=== PATIENT | female | born 1955 | race Hispanic/Latino ===

== ENCOUNTER 2023-08-31 14:39 | Inpatient (IN) | payer OTHER ==
[2023-08-31] VITALS (27 sets, daily range): BP systolic 100–161; BP diastolic 60–106; PULSE 83–96; RESP 20–33; O2SAT 92–98
[~2023-08-31] VITALS: Ht 162.6 cm; Wt 53.2 kg
[~2023-08-31 14:39] MED LIST: ALBU18HF7 IH; FLUT1BLS IH; GABA100C PO; IPRA3AMP24 IH; PANT40TA PO; TIOT4MIS5 IH
[2023-08-31 15:15] LABS: BASOPHILS # (AUTO) 0.02 K/uL (0.00-0.20); BASOPHILS % (AUTO) 0.2 % (0.0-5.0); EOSINOPHILS # (AUTO) 0.03 K/uL (0.00-0.70); EOSINOPHILS % (AUTO) 0.3 % (0.0-8.0); HEMATOCRIT 39.4 % (36-48); IMMATURE GRANULOCYTE ABSOLUTE 0.04 K/uL (0-1); LYMPHOCYTES # (AUTO) 0.9 K/uL (1.0-4.8); LYMPHOCYTES % (AUTO) 8.6 % (21.0-51.0); MEAN CORPUSCULAR HEMOGLOBIN 29.1 pg (27.0-33.0); MEAN CORPUSCULAR HGB CONC 31.7 g/dL (32.0-36.0); MEAN CORPUSCULAR VOLUME 91.6 fL (79-99); MONOCYTES # (AUTO) 0.4 K/uL (0.1-1.0); MONOCYTES % (AUTO) 3.3 % (3.0-13.0); NEUTROPHILS # (AUTO) 9.3 K/uL (1.8-7.7); NEUTROPHILS % (AUTO) 87.2 % (40.0-77.0); PLATELET COUNT (AUTO) 322 K/uL (130-400); RED CELL DISTRIBUTION WIDTH 11.7 % (11.0-15.5); WHITE BLOOD COUNT (AUTO) 10.6 K/uL (4.8-10.8)
[2023-08-31 15:31] LABS: B-TYPE NATRIURETIC PEPTIDE 65 pg/mL (0-100)
[2023-08-31 15:32] LABS: ALBUMIN 3.6 g/dL (3.5-5.0); BILIRUBIN,TOTAL 0.3 mg/dL (0.2-1.0); CREATININE 0.7 mg/dL (0.5-1.0); MAGNESIUM 1.7 mg/dL (1.80-2.40); POTASSIUM 4.6 mmol/L (3.5-5.1); TOTAL PROTEIN, SERUM 7.1 g/dL (6.0-8.3)
[2023-08-31] MEDS: IPRATROPIUM/ALBUTEROL SULFATE 3 ML SOLUTION IH ONE (15:42)
[2023-08-31 15:55] LABS: ABG BASE EXCESS 2.7 mmol/L (-2.0-3.0); ABG HCO3 33.2 mmol/L (21.0-28.0); ABG OXYGEN SATURATION 91.4 % (95.0-99.0); ABG PCO2 82 mmHg (32-45); ABG PH 7.227 (7.35-7.450); PO2, ARTERIAL BG 74.2 mmHg (83.0-108.0); VENT MODE, BG NC (ROOM AIR)
[2023-08-31] MEDS: LEVOFLOXACIN 750 MG/D5W 150ML BAG IV ONE (16:59)
[2023-08-31 17:38] LABS: HEMOGLOBIN A1C 6.1 % (4.0-6.0)
[2023-08-31 17:48] LABS: THYROID STIMULATING HORMONE 1.08 uIU/mL (0.36-3.74)
[2023-08-31] MEDS ORDERED: ACETAMINOPHEN 500 MG TABLET PO PRN (18:00)
[2023-08-31] MEDS ORDERED: POTASSIUM CHLORIDE 20MEQ/100ML 100 ML IV PRN (18:00)
[2023-08-31] MEDS: SOLU-MEDROL 40MG VIAL IVP SCH (18:24)
[2023-08-31] MEDS: MAGNESIUM 2GM PREMIX 50ML 50 ML IV PRN (18:37)
[2023-08-31 18:51] LABS: SARS-CoV-2, RNA, NAAT NEGATIVE SARS CoV-2 (NEGATIVE)
[2023-08-31 19:01] LABS: INFLUENZA TYPE A Negative For Type A (NEGATIVE); INFLUENZA TYPE B Negative For Type B (NEGATIVE)
[2023-08-31] MEDS: IPRATROPIUM/ALBUTEROL SULFATE 3 ML SOLUTION IH SCH (19:26)
[2023-08-31 20:06] LABS: ABG BASE EXCESS 5.5 mmol/L (-2.0-3.0); ABG HCO3 36.4 mmol/L (21.0-28.0); ABG OXYGEN SATURATION 81.6 % (95.0-99.0); ABG PCO2 87 mmHg (32-45); ABG PH 7.242 (7.35-7.450); PO2, ARTERIAL BG 55.1 mmHg (83.0-108.0); VENT MODE, BG BIPAP 14-6 (ROOM AIR)
[2023-08-31] MEDS: BUDESONIDE 0.25 MG/2 ML INH IH SCH (21:30)
[2023-08-31] MEDS ORDERED: IBUP-2077 PO (21:34)
[2023-08-31] MEDS ORDERED: BENZ-226 PO (21:36)
[2023-08-31] MEDS ORDERED: CEFU500T67 PO (21:37)
[2023-08-31] MEDS: FAMOTIDINE 20MG VIAL IV SCH (21:47)
[2023-08-31] MEDS: LORAZEPAM 2 MG/ML 1 ML VIAL ONE (22:08)
[2023-08-31] MEDS: SODIUM CHLORIDE 1,000 MG TAB ONE (22:08)
[2023-08-31] MEDS: LORAZEPAM 2 MG/ML 1 ML VIAL IVP ONE (22:11)
[2023-08-31] MEDS: SODIUM CHLORIDE 1,000 MG TAB PO SCH (22:15)
[2023-09-01] VITALS (75 sets, daily range): BP systolic 99–160; BP diastolic 47–108; PULSE 65–99; RESP 14–74; O2SAT 92–96
[2023-09-01 00:35] LABS: ABG BASE EXCESS 6.6 mmol/L (-2.0-3.0); ABG HCO3 37.8 mmol/L (21.0-28.0); ABG OXYGEN SATURATION 94.1 % (95.0-99.0); ABG PCO2 94 mmHg (32-45); ABG PH 7.224 (7.35-7.450); CARBON MONOXIDE 1.8; HHb 5.8; PO2, ARTERIAL BG 73.6 mmHg (83.0-108.0)
[2023-09-01] MEDS: 0.9%NACL 1000ML 1,000 ML IV SCH (01:27)
[2023-09-01 02:58] LABS: ABG BASE EXCESS 7.6 mmol/L (-2.0-3.0); ABG HCO3 38.8 mmol/L (21.0-28.0); ABG OXYGEN SATURATION 91.9 % (95.0-99.0); ABG PCO2 97 mmHg (32-45); ABG PH 7.222 (7.35-7.450); CARBON MONOXIDE 1.5; HHb 7.9; PO2, ARTERIAL BG 67.5 mmHg (83.0-108.0)
[2023-09-01 05:34] LABS: ABG BASE EXCESS 5.1 mmol/L (-2.0-3.0); ABG OXYGEN SATURATION 93.1 % (95.0-99.0); ABG PCO2 72 mmHg (32-45); ABG PH 7.289 (7.35-7.450); CARBON MONOXIDE 1.7; HHb 6.8; PO2, ARTERIAL BG 71.5 mmHg (83.0-108.0); VENT MODE, BG BIPAP 20-9 (ROOM AIR)
[2023-09-01 07:18] LABS: HEMATOCRIT 39.8 % (36-48); IMMATURE GRANULOCYTE ABSOLUTE 0.02 K/uL (0-1); LYMPHOCYTES # (AUTO) 0.4 K/uL (1.0-4.8); LYMPHOCYTES % (AUTO) 8.2 % (21.0-51.0); MEAN CORPUSCULAR HEMOGLOBIN 29.5 pg (27.0-33.0); MEAN CORPUSCULAR HGB CONC 31.2 g/dL (32.0-36.0); MEAN CORPUSCULAR VOLUME 94.5 fL (79-99); MONOCYTES % (AUTO) 0.4 % (3.0-13.0); NEUTROPHILS # (AUTO) 4.7 K/uL (1.8-7.7); PLATELET COUNT (AUTO) 339 K/uL (130-400); RED BLOOD CELL COUNT(AUTO) 4.21 MIL/uL (4.00-5.50); RED CELL DISTRIBUTION WIDTH 11.6 % (11.0-15.5); WHITE BLOOD COUNT (AUTO) 5.1 K/uL (4.8-10.8)
[2023-09-01 07:25] LABS: CREATININE 0.7 mg/dL (0.5-1.0); POTASSIUM 5.8 mmol/L (3.5-5.1)
[2023-09-01] MEDS ORDERED: PHARMACY COMMUNICATION MISC SCH (10:30)
[2023-09-01] MEDS ORDERED: DEXMEDETOMIDINE HCL 400 MCG in 0.9%NACL 100ML 100 ML IV SCH (11:30)
[2023-09-01 15:13] LABS: ABG BASE EXCESS 6.4 mmol/L (-2.0-3.0); ABG HCO3 36.9 mmol/L (21.0-28.0); ABG OXYGEN SATURATION 96.9 % (95.0-99.0); ABG PCO2 83 mmHg (32-45); ABG PH 7.264 (7.35-7.450); DEVICE COMMENT SYLVIA RN; PO2, ARTERIAL BG 107.5 mmHg (83.0-108.0)
[2023-09-01] MEDS: DEXMEDETOMIDINE 400MCG/NS100ML IV SCH (16:40)
[2023-09-01] MEDS: LEVOFLOXACIN 500 MG/D5W 100 ML 100 ML IV SCH (16:40)
[2023-09-01] MEDS: ENOXAPARIN SODIUM 30 MG/0.3 ML SQ SCH (22:44)
[2023-09-02] VITALS (42 sets, daily range): BP systolic 97–135; BP diastolic 46–78; PULSE 48–92; RESP 16–29; O2SAT 91–97
[2023-09-02 04:13] LABS: HEMATOCRIT 35.6 % (36-48); IMMATURE GRANULOCYTE ABSOLUTE 0.03 K/uL (0-1); LYMPHOCYTES # (AUTO) 0.6 K/uL (1.0-4.8); MEAN CORPUSCULAR HEMOGLOBIN 29.3 pg (27.0-33.0); MEAN CORPUSCULAR HGB CONC 31.7 g/dL (32.0-36.0); MEAN CORPUSCULAR VOLUME 92.2 fL (79-99); MONOCYTES # (AUTO) 0.4 K/uL (0.1-1.0); NEUTROPHILS # (AUTO) 5.9 K/uL (1.8-7.7); NEUTROPHILS % (AUTO) 84.6 % (40.0-77.0); PLATELET COUNT (AUTO) 328 K/uL (130-400); RED BLOOD CELL COUNT(AUTO) 3.86 MIL/uL (4.00-5.50); RED CELL DISTRIBUTION WIDTH 11.8 % (11.0-15.5)
[2023-09-02 04:34] LABS: CREATININE 0.7 mg/dL (0.5-1.0); POTASSIUM 5.7 mmol/L (3.5-5.1)
[2023-09-02 07:33] LABS: ABG BASE EXCESS 6.7 mmol/L (-2.0-3.0); ABG HCO3 34.3 mmol/L (21.0-28.0); ABG OXYGEN SATURATION 91.6 % (95.0-99.0); ABG PCO2 62 mmHg (32-45); ABG PH 7.362 (7.35-7.450); PO2, ARTERIAL BG 65.3 mmHg (83.0-108.0); VENT MODE, BG BIPAP 20-9 (ROOM AIR)
[2023-09-02] MEDS: NA ZIRCON CYCLOSIL(LOKELMA 10GM) PO STA (09:13)
[2023-09-02] MEDS: SOLU-MEDROL 40MG VIAL IVP SCH (18:04)
[2023-09-03] VITALS (13 sets, daily range): BP systolic 112–149; BP diastolic 56–73; PULSE 70–95; RESP 18–26; O2SAT 95–98
[2023-09-03 05:09] LABS: BASOPHILS # (AUTO) 0.01 K/uL (0.00-0.20); BASOPHILS % (AUTO) 0.1 % (0.0-5.0); HEMATOCRIT 34.9 % (36-48); IMMATURE GRANULOCYTE ABSOLUTE 0.03 K/uL (0-1); LYMPHOCYTES # (AUTO) 0.4 K/uL (1.0-4.8); LYMPHOCYTES % (AUTO) 4.9 % (21.0-51.0); MEAN CORPUSCULAR HEMOGLOBIN 29.4 pg (27.0-33.0); MEAN CORPUSCULAR HGB CONC 31.8 g/dL (32.0-36.0); MEAN CORPUSCULAR VOLUME 92.3 fL (79-99); MONOCYTES # (AUTO) 0.2 K/uL (0.1-1.0); MONOCYTES % (AUTO) 2.5 % (3.0-13.0); NEUTROPHILS # (AUTO) 8.2 K/uL (1.8-7.7); NEUTROPHILS % (AUTO) 92.2 % (40.0-77.0); PLATELET COUNT (AUTO) 353 K/uL (130-400); RED BLOOD CELL COUNT(AUTO) 3.78 MIL/uL (4.00-5.50); RED CELL DISTRIBUTION WIDTH 12.1 % (11.0-15.5); WHITE BLOOD COUNT (AUTO) 8.8 K/uL (4.8-10.8)
[2023-09-03 05:17] LABS: CREATININE 0.7 mg/dL (0.5-1.0); POTASSIUM 4.5 mmol/L (3.5-5.1)
[2023-09-03] MEDS: SOLU-MEDROL 40MG VIAL IVP SCH (20:09)
[2023-09-04] VITALS (13 sets, daily range): BP systolic 104–142; BP diastolic 60–76; PULSE 69–90; RESP 18–27; O2SAT 93–99
[2023-09-04] MEDS: ALPRAZOLAM 0.25 MG TABLET PO STA (01:45)
[2023-09-04 04:57] LABS: HEMATOCRIT 36.2 % (36-48); IMMATURE GRANULOCYTE ABSOLUTE 0.04 K/uL (0-1); LYMPHOCYTES # (AUTO) 0.6 K/uL (1.0-4.8); MEAN CORPUSCULAR HEMOGLOBIN 29.8 pg (27.0-33.0); MEAN CORPUSCULAR HGB CONC 31.8 g/dL (32.0-36.0); MEAN CORPUSCULAR VOLUME 93.8 fL (79-99); MONOCYTES # (AUTO) 0.7 K/uL (0.1-1.0); MONOCYTES % (AUTO) 7.9 % (3.0-13.0); NEUTROPHILS # (AUTO) 7.5 K/uL (1.8-7.7); NEUTROPHILS % (AUTO) 84.6 % (40.0-77.0); PLATELET COUNT (AUTO) 348 K/uL (130-400); RED BLOOD CELL COUNT(AUTO) 3.86 MIL/uL (4.00-5.50); RED CELL DISTRIBUTION WIDTH 12.3 % (11.0-15.5); WHITE BLOOD COUNT (AUTO) 8.9 K/uL (4.8-10.8)
[2023-09-04 05:16] LABS: CREATININE 0.7 mg/dL (0.5-1.0); MAGNESIUM 1.8 mg/dL (1.80-2.40); PHOSPHORUS 3.3 mg/dL (2.5-4.9); POTASSIUM 4.6 mmol/L (3.5-5.1)
[2023-09-04] MEDS ORDERED: CETI10TA57 PO (09:21)
[2023-09-04] MEDS ORDERED: NON-FORMULARY MEDICATION 1 EACH (Cetirizine HCl 10 MG) PO PRN (16:00)
[2023-09-05] VITALS (12 sets, daily range): BP systolic 97–129; BP diastolic 46–70; PULSE 68–90; RESP 16–24; O2SAT 94–95
[2023-09-05 04:32] LABS: HEMATOCRIT 37.6 % (36-48); MEAN CORPUSCULAR HEMOGLOBIN 29.5 pg (27.0-33.0); MEAN CORPUSCULAR HGB CONC 31.6 g/dL (32.0-36.0); MEAN CORPUSCULAR VOLUME 93.1 fL (79-99); RED BLOOD CELL COUNT(AUTO) 4.04 MIL/uL (4.00-5.50); RED CELL DISTRIBUTION WIDTH 12.4 % (11.0-15.5); WHITE BLOOD COUNT (AUTO) 7.7 K/uL (4.8-10.8)
[2023-09-05 05:00] LABS: CREATININE 0.7 mg/dL (0.5-1.0); MAGNESIUM 2.1 mg/dL (1.80-2.40); POTASSIUM 4.2 mmol/L (3.5-5.1)
[2023-09-05 07:04] LABS: ABG BASE EXCESS 8.2 mmol/L (-2.0-3.0); ABG HCO3 37.6 mmol/L (21.0-28.0); ABG OXYGEN SATURATION 92.5 % (95.0-99.0); ABG PCO2 75 mmHg (32-45); DEVICE COMMENT ANA RN RB; PO2, ARTERIAL BG 71.7 mmHg (83.0-108.0); VENT MODE, BG 2L NC (ROOM AIR)
[2023-09-05] MEDS: CETIRIZINE HCL 5 MG TABLET PO PRN (09:41)
[2023-09-05] MEDS: PREDNISONE 20 MG TABLET PO ONE (09:41)
[2023-09-06 04:00] VITALS: BP 123/72; PULSE 80; RESP 18
[2023-09-06 04:00] LABS: EOSINOPHILS # (AUTO) 0.07 K/uL (0.00-0.70); EOSINOPHILS % (AUTO) 0.7 % (0.0-8.0); HEMATOCRIT 36.6 % (36-48); IMMATURE GRANULOCYTE ABSOLUTE 0.03 K/uL (0-1); LYMPHOCYTES # (AUTO) 1.8 K/uL (1.0-4.8); LYMPHOCYTES % (AUTO) 18.5 % (21.0-51.0); MEAN CORPUSCULAR HEMOGLOBIN 29.7 pg (27.0-33.0); MEAN CORPUSCULAR HGB CONC 31.7 g/dL (32.0-36.0); MEAN CORPUSCULAR VOLUME 93.8 fL (79-99); MONOCYTES # (AUTO) 1.2 K/uL (0.1-1.0); NEUTROPHILS # (AUTO) 6.7 K/uL (1.8-7.7); NEUTROPHILS % (AUTO) 68.5 % (40.0-77.0); PLATELET COUNT (AUTO) 370 K/uL (130-400); RED CELL DISTRIBUTION WIDTH 12.4 % (11.0-15.5); WHITE BLOOD COUNT (AUTO) 9.8 K/uL (4.8-10.8)
[2023-09-06 04:47] LABS: ALBUMIN 3.2 g/dL (3.5-5.0); BILIRUBIN,TOTAL 0.3 mg/dL (0.2-1.0); CREATININE 0.8 mg/dL (0.5-1.0); POTASSIUM 4.1 mmol/L (3.5-5.1)
[2023-09-06 06:52] VITALS: PULSE 72; RESP 19
[2023-09-06 06:59] VITALS: PULSE 72; RESP 18; O2SAT 96
[2023-09-06 08:00] VITALS: BP 115/57; PULSE 69; RESP 16; O2SAT 98
[2023-09-06 11:43] VITALS: PULSE 79; RESP 19
[2023-09-06 12:00] VITALS: BP 91/60; PULSE 66; RESP 16
[2023-09-06] MEDS ORDERED: LEVO-70 PO (16:36)
== END 2023-09-06 17:45 | disposition home or self-care (01) | DRG 871 ==
LOC: EDH 14:39 → EDHIP 17:18 → 2BH 19:35 → 3AH 09-02 16:25
PROVIDERS: ADMIT Internal Medicine; ATTEND Internal Medicine
PROC: 5A09357 Assistance with Respiratory Ventilation, Less than 24 Consecutive Hours, Continuous Positive Airway Pressure (ICD-10-PCS; principal; 2023-08-31)
PROC: 5A09357 Assistance with Respiratory Ventilation, Less than 24 Consecutive Hours, Continuous Positive Airway Pressure (ICD-10-PCS; 2023-09-01)
PROC: 5A09357 Assistance with Respiratory Ventilation, Less than 24 Consecutive Hours, Continuous Positive Airway Pressure (ICD-10-PCS; 2023-09-02)
PROC: 5A09357 Assistance with Respiratory Ventilation, Less than 24 Consecutive Hours, Continuous Positive Airway Pressure (ICD-10-PCS; 2023-09-02)
DX: A41.9 Sepsis, unspecified organism (principal); G93.41 Metabolic encephalopathy; J96.21 Acute and chronic respiratory failure with hypoxia; J96.22 Acute and chronic respiratory failure with hypercapnia; J18.9 Pneumonia, unspecified organism; I21.A1 Myocardial infarction type 2; E87.1 Hypo-osmolality and hyponatremia; E87.29 Other acidosis; J44.0 Chronic obstructive pulmonary disease with (acute) lower respiratory infection; R64 Cachexia; J44.1 Chronic obstructive pulmonary disease with (acute) exacerbation; Z20.822 Contact with and (suspected) exposure to COVID-19; E83.42 Hypomagnesemia; F17.210 Nicotine dependence, cigarettes, uncomplicated; F41.9 Anxiety disorder, unspecified; G47.33 Obstructive sleep apnea (adult) (pediatric); N28.9 Disorder of kidney and ureter, unspecified; Z88.0 Allergy status to penicillin; Z91.199 Patient's noncompliance with other medical treatment and regimen due to unspecified reason; Z98.51 Tubal ligation status; Z68.20 Body mass index [BMI] 20.0-20.9, adult
CPT/HCPCS: 36415; 36600; 71045; 80048; 80053; 80400; 82435; 82533; 82803; 82947; 83036; 83605; 83735; 83880; 83930; 84100; 84132; 84145; 84295; 84443; 84484; 84550; 85018; 85025; 85027; 86140; 87040; 87426; 87635; 87804; 93005; 94640; 94660; 94664; 96365; 96375; 99291; G0378; J1650; J1956; J2060; J2920; J3475; J3490; A6213